=== PATIENT | female | born 1965 | race Caucasian/White ===

== ENCOUNTER 2020-04-18 04:55 | Observation (INO) | payer MEDICARE, OTHER ==
[2020-04-18] MEDS ORDERED: ASPIRIN 81 MG PO STA (05:25)
--- NOTE | 2020-04-18 05:35 | ED ---
Dizziness HPI - General Chief Complaint: Dizziness Stated Complaint: Nausea, chest pain Time Seen by Provider: 04/18/20 04:58 Source: patient, EMS Mode of arrival: EMS Limitations: no limitations - History of Present Illness Initial Comments: This patient is a 54-year-old woman who presents with a constellation of symptoms that had come on tonight approximately one hour ago. The patient was feeling lightheaded and sweaty. The patient also states she had similar symptoms the previous night approximately 2:30. She at that time she was having some substernal chest pressure. She was feeling short of breath, had a little bit of nausea and was feeling very hot. Complaint: lightheadedness -: hour(s) Timing: awoke with symptoms Description: lightheadedness History of Same: Yes Severity: moderate Improves With: nothing Worsens With: nothing Associated Symptoms: chest pain, diaphoresis, shortness of breath - Related Data Home Medications Medication Instructions Recorded Confirmed HYDROcodone/APAP 10-325MG [[place] 1 tab PO Q4HR PRN 04/18/20 04/18/20 10-325] Unknown Depresson Med 1 tab PO DAILY 04/18/20 04/18/20 Allergies Allergy/AdvReac Type Severity Reaction Status Date / Time Penicillins AdvReac Rash/Hives Verified 04/18/20 07:09 Review of Systems ROS Statement: Those systems with pertinent positive or pertinent negative responses have been documented in the HPI. ROS Other: All systems not noted in ROS Statement are negative. Constitutional: Denies: fever, chills Respiratory: Reports: as per HPI, dyspnea. Denies: cough, wheezes, hemoptysis Cardiovascular: Reports: as per HPI, chest pain, syncope (Near syncope). Denies: palpitations, edema Gastrointestinal: Reports: nausea. Denies: abdominal pain, vomiting, diarrhea Genitourinary: Denies: dysuria, hematuria Musculoskeletal: Denies: back pain Skin: Denies: rash Neurological: Denies: headache, weakness, numbness Past Medical History Past Medical History: No Reported History History of Any Multi-Drug Resistant Organisms: None Reported Past Surgical History: Appendectomy, Hernia Repair, Orthopedic Surgery Additional Past Surgical History / Comment(s): Gallbladder removed 2019. Past Psychological History: Depression Smoking Status: Former smoker Past Alcohol Use History: None Reported Past Drug Use History: None Reported General Exam Limitations: no limitations General appearance: alert, in no apparent distress Head exam: Present: atraumatic, normocephalic Eye exam: Present: normal appearance. Absent: scleral icterus, conjunctival injection ENT exam: Present: normal oropharynx Neck exam: Present: normal inspection Respiratory exam: Present: normal lung sounds bilaterally. Absent: respiratory distress, wheezes, rales, rhonchi, stridor Cardiovascular Exam: Present: regular rate, normal rhythm, normal heart sounds. Absent: systolic murmur, diastolic murmur, rubs, gallop GI/Abdominal exam: Present: soft. Absent: distended, tenderness, guarding, rebound, rigid Extremities exam: Present: normal inspection, normal capillary refill. Absent: pedal edema, calf tenderness Back exam: Present: normal inspection. Absent: CVA tenderness (R), CVA tenderness (L) Neurological exam: Present: alert Skin exam: Present: warm, dry, intact, normal color. Absent: rash Course Vital Signs 04/18/20 04/18/20 04:57 07:33 Temperature 98.8 F 99 F Pulse Rate 97 82 Respiratory 16 18 Rate Blood Pressure 135/81 140/87 O2 Sat by Pulse 99 100 Oximetry EKG Findings - EKG Results: EKG: interpreted by ERMD, sinus rhythm (Rate 78 bpm), normal axis, normal ST/T - Blocks, [place], Hypertrophy, ST Abn: AV and intraventricular conduction: right bundle branch block (fixed/intermittent, complete/incomplete) (Incomplete) Medical Decision Making - Medical Decision Making This patient is a 54-year-old woman who presents to be evaluated for episodes of feeling lightheaded or dizzy on the past 2 nights. In addition there was some chest pain that accompanied the previous night's episode. Patient's initial workup here is negative but given the 2 episodes on [id number] nights will admit for serial cardiac enzymes, telemetry monitoring and cardiology consultation. Patient is symptom-free at time of admission - Lab Data Result diagrams: 04/18/20 05:29 04/18/20 05:29 Lab Results 04/18/20 04/18/20 04/18/20 Range/Units 05:29 05:29 05:29 WBC 5.5 (3.8-10.6) k/uL RBC 3.99 (3.80-5.40) m/uL Hgb 13.2 (11.4-16.0) gm/dL Hct 38.6 (34.0-46.0) % MCV 96.8 (80.0-100.0) fL MCH 33.1 (25.0-35.0) pg MCHC 34.2 (31.0-37.0) g/dL RDW 12.7 (11.5-15.5) % Plt Count 310 (150-450) k/uL MPV 7.0 Neutrophils % 63 % Lymphocytes % 29 % Monocytes % 5 % Eosinophils % 1 % Basophils % 1 % Neutrophils # 3.5 (1.3-7.7) k/uL Lymphocytes # 1.6 (1.0-4.8) k/uL Monocytes # 0.3 (0-1.0) k/uL Eosinophils # 0.1 (0-0.7) k/uL Basophils # 0.0 (0-0.2) k/uL PT 10.3 (9.0-12.0) sec INR 1.0 (<1.2) APTT 25.9 (22.0-30.0) sec D-Dimer 0.45 (<0.60) mg/L FEU Sodium 137 (137-145) mmol/L Potassium 4.2 (3.5-5.1) mmol/L Chloride 104 (98-107) mmol/L Carbon Dioxide 25 (22-30) mmol/L Anion Gap 8 mmol/L BUN 23 H (7-17) mg/dL Creatinine 0.64 (0.52-1.04) mg/dL Est GFR (CKD-EPI)AfAm >90 (>60 ml/min/1.73 sqM) Est GFR (CKD-EPI)NonAf >90 (>60 ml/min/1.73 sqM) Glucose 102 H (74-99) mg/dL Calcium 9.3 (8.4-10.2) mg/dL Magnesium 2.2 (1.6-2.3) mg/dL Total Bilirubin 0.5 (0.2-1.3) mg/dL AST 25 (14-36) U/L ALT 37 H (4-34) U/L Alkaline Phosphatase 103 (38-126) U/L Troponin I (0.000-0.034) ng/mL Total Protein 6.6 (6.3-8.2) g/dL Albumin 4.0 (3.5-5.0) g/dL Amylase 81 (30-110) U/L Lipase 184 (23-300) U/L 04/18/20 Range/Units 05:29 WBC (3.8-10.6) k/uL RBC (3.80-5.40) m/uL Hgb (11.4-16.0) gm/dL Hct (34.0-46.0) % MCV (80.0-100.0) fL MCH (25.0-35.0) pg MCHC (31.0-37.0) g/dL RDW (11.5-15.5) % Plt Count (150-450) k/uL MPV Neutrophils % % Lymphocytes % % Monocytes % % Eosinophils % % Basophils % % Neutrophils # (1.3-7.7) k/uL Lymphocytes # (1.0-4.8) k/uL Monocytes # (0-1.0) k/uL Eosinophils # (0-0.7) k/uL Basophils # (0-0.2) k/uL PT (9.0-12.0) sec INR (<1.2) APTT (22.0-30.0) sec D-Dimer (<0.60) mg/L FEU Sodium (137-145) mmol/L Potassium (3.5-5.1) mmol/L Chloride (98-107) mmol/L Carbon Dioxide (22-30) mmol/L Anion Gap mmol/L BUN (7-17) mg/dL Creatinine (0.52-1.04) mg/dL Est GFR (CKD-EPI)AfAm (>60 ml/min/1.73 sqM) Est GFR (CKD-EPI)NonAf (>60 ml/min/1.73 sqM) Glucose (74-99) mg/dL Calcium (8.4-10.2) mg/dL Magnesium (1.6-2.3) mg/dL Total Bilirubin (0.2-1.3) mg/dL AST (14-36) U/L ALT (4-34) U/L Alkaline Phosphatase (38-126) U/L Troponin I <0.012 (0.000-0.034) ng/mL Total Protein (6.3-8.2) g/dL Albumin (3.5-5.0) g/dL Amylase (30-110) U/L Lipase (23-300) U/L Disposition Clinical Impression: Chest pain Disposition: ADMITTED IP TO THIS HOSP Condition: Fair
--- NOTE | 2020-04-18 06:02 | XR ---
EXAM: XR Chest, 2 Views CLINICAL HISTORY: ITS.REASON XR Reason: Chest Pain TECHNIQUE: Frontal and lateral views of the chest. COMPARISON: none available FINDINGS: Lungs: Unremarkable. No consolidation. Pleural space: Unremarkable. No pneumothorax. Heart: Unremarkable. No cardiomegaly. Mediastinum: Unremarkable. Bones/joints: Unremarkable. IMPRESSION: No acute pulmonary process.
[2020-04-18 06:08] LABS: Basophils % (A) 1 %; Eosinophils # (A) 0.1 k/uL (0-0.7); Eosinophils % (A) 1 %; HCT 38.6 % (34.0-46.0); HGB 13.2 gm/dL (11.4-16.0); Lymphocytes # (A) 1.6 k/uL (1.0-4.8); Lymphocytes % (A) 29 %; MCH 33.1 pg (25.0-35.0); MCHC 34.2 g/dL (31.0-37.0); MCV 96.8 fL (80.0-100.0); Monocytes # (A) 0.3 k/uL (0-1.0); Monocytes % (A) 5 %; Neutrophils # (A) 3.5 k/uL (1.3-7.7); Neutrophils % (A) 63 %; Platelet Count 310 k/uL (150-450); RBC 3.99 m/uL (3.80-5.40); RDW 12.7 % (11.5-15.5); WBC 5.5 k/uL (3.8-10.6)
[2020-04-18 06:26] LABS: D-Dimer 0.45 mg/L FEU (<0.60); Partial Thromboplastin Time 25.9 sec (22.0-30.0); Prothrombin Time 10.3 sec (9.0-12.0)
[2020-04-18 06:29] LABS: ALT 37 U/L (4-34); AST 25 U/L (14-36); African American GFR (CKD) >90 (>60 ml/min/1.73 sqM); Alkaline Phosphatase 103 U/L (38-126); Amylase 81 U/L (30-110); Anion Gap 8 mmol/L; Blood Urea Nitrogen 23 mg/dL (7-17); Calcium 9.3 mg/dL (8.4-10.2); Carbon Dioxide 25 mmol/L (22-30); Chloride 104 mmol/L (98-107); Glucose 102 mg/dL (74-99); Lipase 184 U/L (23-300); Magnesium 2.2 mg/dL (1.6-2.3); Non-African American GFR(CKD) >90 (>60 ml/min/1.73 sqM); Potassium 4.2 mmol/L (3.5-5.1); Sodium 137 mmol/L (137-145); Total Bilirubin 0.5 mg/dL (0.2-1.3); Total Protein 6.6 g/dL (6.3-8.2)
[2020-04-18] MEDS ORDERED: NITROGLYCERIN SL TABS 0.4 MG TAB SUBLINGUAL PRN (07:07)
[2020-04-18] MEDS ORDERED: SODIUM CHLORIDE 0.9% 1,000 ML IV SCH (07:15)
[2020-04-18] MEDS ORDERED: DOBUTamine DRIP for NUC MED 500 MG in DEXTROSE/WATER 1 250ML.BAG IV PRN ×2 (09:00→09:30)
--- NOTE | 2020-04-18 09:17 | CONS ---
CONSULTATION Mrs. Rainey is a 54-year-old female with no prior documented history of coronary artery disease who presented with symptoms of diaphoresis, nausea, and an episode of chest discomfort as well as syncope. She had an episode yesterday in bed when she felt some chest discomfort, then felt sweaty, nauseated and felt that she had a brief syncopal episode. When she came to, she had no loss of bladder control. The episode was very brief. She did not have any palpitation. Today she felt nauseated and sweaty and that is why she came into the emergency room. She did not have any syncope or significant chest pain. The patient has no prior cardiac history. She is not very active physically because of her back discomfort. She has no history of prior syncope. No PND or orthopnea. No peripheral edema. Her coronary risk factors are negative for hypertension or diabetes. She is a nonsmoker. MEDICATIONS: Her medication includes Celexa and [place] on a p.r.n. basis. REVIEW OF SYSTEMS: RESPIRATORY SYSTEM: She has no documented history of asthma, emphysema or bronchitis. GI SYSTEM: No recent GI bleeding. No peptic ulcer disease. SYSTEM: No dysuria or hematuria. NERVOUS SYSTEM: No stroke or seizure. PHYSICAL EXAMINATION: She is a 54-year-old female, alert, oriented, in no apparent distress. Blood pressure 124/70 with the heart rate in the 70s. HEAD: Normocephalic. EYES: Sclerae anicteric. NECK: Good upstroke. No bruit. No jugular venous distention. LUNGS: Clear to auscultation. HEART: Regular rate and rhythm. S1, S2. No S3. No S4. No murmur or rub. ABDOMEN: Soft, nontender. Positive bowel sounds. No organomegaly. EXTREMITIES: No edema. Intact distal pulses. LAB DATA: Lab data revealed troponin less than 0.012. BUN and creatinine 23 and 0.64. Potassium 4.2. Hemoglobin 13.2. EKG revealed a sinus mechanism normal axis with RSR prime. No acute ST-segment changes. Chest x-ray shows no acute infiltrate. IMPRESSION: 1. Chest discomfort of unclear etiology, has atypical features for ischemic heart disease. 2. History of chronic back pain. 3. Questionable syncopal episode, could be related to vasovagal symptoms. RECOMMENDATION: We will check the rest of her enzymes. If they are negative, I will obtained dobutamine stress echocardiogram and transthoracic echocardiogram and depending on the testing, further recommendation will be made. Thank you for this consult. We will follow with you. TIMO / IJN: [id number] /
[2020-04-18] MEDS ORDERED: HYDROcodone/APAP 10-325MG 1 EACH TAB PO PRN (11:25)
[2020-04-18] MEDS ORDERED: CITALOPRAM HYDROBROMIDE 20 MG TAB PO SCH (11:30)
--- NOTE | 2020-04-18 13:32 | ECHOF ---
Referral Reason:cp MEASUREMENTS -------- HEIGHT: 167.6 cm WEIGHT: 69.4 kg BP: 124/73 RVIDd: 3.1 cm (< 3.3) IVSd: 1.1 cm (0.6 - 1.1) LVIDd: 4.0 cm (3.9 - 5.3) LVPWd: 0.9 cm (0.6 - 1.1) IVSs: 1.4 cm LVIDs: 2.3 cm LVPWs: 1.5 cm LA Diam: 3.3 cm (2.7 - 3.8) Ao Diam: 3.0 cm (2.0 - 3.7) AV Cusp: 2.2 cm (1.5 - 2.6) MV EXCURSION: 17.484 mm (> 18.000) MV EF SLOPE: 87 mm/s (70 - 150) EPSS: 0.3 cm MV E Imtiaz: 0.99 m/s MV DecT: 212 ms MV A Imtiaz: 0.84 m/s MV E/A Ratio: 1.17 FINDINGS -------- Sinus rhythm. This was a technically adequate study. The left ventricular size is normal. Left ventricular wall thickness is normal. Overall left vent ricular systolic function is normal with, an EF between 55 - 60 %. The right ventricle is normal in size. The left atrium is normal in size. The right atrial size is normal. Lipomatous Hypertrophy of the atrial septum is present The aortic valve is trileaflet, and appears structurally normal. No aortic stenosis or regurgitation. The mitral valve is normal. There is trace to mild mitral regurgitation. The tricuspid valve appears structurally normal. Trace tricuspid regurgitation present. There is no pulmonic regurgitation present. The aortic root size is normal. Normal inferior vena cava with normal inspiratory collapse consistent with estimated right atrial pre ssure of 5 mmHg. There is no pericardial effusion. CONCLUSIONS -------- 1. Left ventricular wall thickness is normal. 2. Overall left ventricular systolic function is normal with, an EF between 55 - 60 %. 3. The left atrium is normal in size. 4. Lipomatous Hypertrophy of the atrial septum is present 5. The aortic valve is trileaflet, and appears structurally normal. No aortic stenosis or regurgitati on. 6. There is trace to mild mitral regurgitation. 7. Trace tricuspid regurgitation present. 8. There is no pericardial effusion. FOOD PROCESSOR: Amparo Zhang RDCS
[2020-04-18 13:46] VITALS: BP 125/79; PULSE 71; RESP 17; TEMP 97.7
--- NOTE | 2020-04-18 14:51 | ECHOS ---
STRESS ECHOCARDIOGRAM LUMASON: N/A Vial INDICATIONS: Chest pain MEDICATIONS: BASELINE HEART RATE: 75 BASELINE BLOOD PRESSURE: 117/83 MAXIMUM HEART RATE: 145 MAXIMUM BLOOD PRESSURE: 159/78 85% MPHR: 140 100% MPHR: 165 METS: N/A MAXIMUM STAGE REACHED: 3 TOTAL EXERCISE TIME: 7:00 CLINICAL INFORMATION: Baseline rhythm sinus mechanism, rate of 75, normal axis and intervals. Normal electrocardiogram. Baseline blood pressure 117/83 mmHg. Patient received infusion of dobutamine. Peak rate 145 beats per minute which is equal to 88% maximum predicted heart rate. Peak blood pressure 159/78 mmHg. Electrocardiograph monitoring revealed no evidence of diagnostic ischemic ST deviation. Baseline echocardiogram revealed normal wall motion. At peak infusion, there was normal wall motion augmentation with no hypokinesis or dyskinesis. CONCLUSION: 1. Normal electrocardiograph response to dobutamine infusion. 2. Normal stress echocardiogram with no evidence of stress-induced ischemia. MMODL / IJN: [id number] /
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
--- NOTE | 2020-04-18 23:00 | P.DS ---
Providers Date of admission: 04/18/20 07:07 Expected date of discharge: 04/18/20 Attending physician: Felix Kelly Consults: 04/18/20 07:07 Consult Physician Routine Consulting Provider: John Ibarra Consult Reason/Comments: chest pain Do you want consulting provider notified?: Yes [facility] Course: Chief Complaint: Chest pain History of presenting complaint: This is a pleasant 54-year-old patient of Dr. Mckeon. Patient denied before dialysis some central chest pressure picked up to her shoulder. Some shortness of breath. No perspiration. It happened again the following night. Happened at rest. Otherwise patient's fairly active with no prior cardiac history. Decided to come in to get checked out. It felt like a pressure in the lower part of the sternum. Admitted with unstable angina Troponins were negative. 2-D echocardiogram showed preserved LV function. Dobutamine stress echocardiogram was negative for ischemia. Seen by Dr. Lubin from cardiology. Cleared for discharge. Consultation: Dr. Lubin from cardiology Past medical history to include: Depression, arthritic pain Social history: Does not smoke. No alcohol. Physical examination: VITAL SIGNS: 98.8, 97, 16, 1 3581, 99% room air GENERAL: BMI 24.7, laying in bed, comfortable. EYES: Pupils equal. Conjunctiva normal. HEENT: External appearance of nose and ears normal, oral cavity grossly normal. NECK: JVD not raised; masses not palpable. HEART: First and second heart sounds are normal; no edema. LUNGS: Respiratory rate normal; clear to auscultation. ABDOMEN: Soft, nontender, liver spleen not palpable, no masses palpable. PSYCH: Alert and oriented x3; mood and affect normal. NEUROLOGICAL: Cranial nerves grossly intact; no facial asymmetry, power and sensation grossly intact. LYMPHATICS: No lymph nodes palpable in the axilla and neck INVESTIGATIONS, reviewed in the clinical context: White count 5.5 hemoglobin 13.2 platelets 310 potassium 4.2 creatinine 0.64 Troponin I 2 negative Coronavirus [PCR]-not detected EKG tracing personally reviewed by me-normal sinus rhythm with incomplete right bundle-branch block Chest x-ray film personally reviewed by me-lung simpson clear 2-D echocardiogram-EF 55-60%. Lipomatous hypertrophy of the atrial septum. Dobutamine echocardiogram-negative for ischemia Assessment and plan: -Anterior chest wall pain. Could be muscular skeletal. -Depression not otherwise specified. Continue Celexa -Unspecified arthritis. Patient Condition at Discharge: Fair Plan - Discharge Summary New Discharge Prescriptions: No Action HYDROcodone/APAP 10-325MG [[place] 10-325] 1 tab PO Q4HR PRN PRN Reason: Pain Citalopram Hydrobromide [CeleXA] 20 mg PO DAILY Discharge Medication List Citalopram Hydrobromide [CeleXA] 20 mg PO DAILY 04/18/20 [History] HYDROcodone/APAP 10-325MG [[place] 10-325] 1 tab PO Q4HR PRN 04/18/20 [History] Follow up Appointment(s)/Referral(s): Aminata Lubin MD [STAFF PHYSICIAN] - 1 Week (Cardiology office will call with appointment time) Mane Mckeon MD [Primary Care Provider] - 04/24/20 11:00 am Patient Instructions/Handouts: Chest Pain (DC) Activity/Diet/Wound Care/Special Instructions: Aspirin 81 mg daily
[2020-04-19] MEDS ORDERED: ASPIRIN 325 MG TAB PO SCH (09:00)
== END 2020-04-18 16:20 ==
LOC: EC 04:55 → 6NMEDSUR 07:07
PROVIDERS: ADMIT Hospitalist; ATTEND Hospitalist
DX: R07.89 Other chest pain (principal); R42 Dizziness and giddiness; R11.0 Nausea; R06.02 Shortness of breath; R61 Generalized hyperhidrosis; I45.10 Unspecified right bundle-branch block; F32.9 Major depressive disorder, single episode, unspecified; R55 Syncope and collapse; G89.29 Other chronic pain; M54.9 Dorsalgia, unspecified; M19.90 Unspecified osteoarthritis, unspecified site; Z20.828 Contact with and (suspected) exposure to other viral communicable diseases; Z79.891 Long term (current) use of opiate analgesic; Z79.899 Other long term (current) drug therapy; Z88.0 Allergy status to penicillin; Z90.49 Acquired absence of other specified parts of digestive tract; Z87.891 Personal history of nicotine dependence; Z98.890 Other specified postprocedural states; Z80.3 Family history of malignant neoplasm of breast; Z82.49 Family history of ischemic heart disease and other diseases of the circulatory system
CPT/HCPCS: 99285; 36415; 93005; 93306; 93351; 85379; 80053; 82150; 83690; 83735; 84484; 85025; 85610; 85730; 87635; 71046; G0378; J1250

== ENCOUNTER 2020-04-20 04:00 | Observation (INO) | payer MEDICARE, OTHER ==
[2020-04-20] MEDS ORDERED: SODIUM CHLORIDE 0.9% 1,000 ML IV STA (04:07)
[2020-04-20] MEDS ORDERED: LORazepam 2 MG/ML INJ IV STA (04:08)
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
[2020-04-20 04:59] LABS: Basophils # (A) 0.1 k/uL (0-0.2); Basophils % (A) 1 %; Eosinophils # (A) 0.1 k/uL (0-0.7); Eosinophils % (A) 2 %; HCT 40.2 % (34.0-46.0); HGB 13.4 gm/dL (11.4-16.0); Lymphocytes # (A) 1.4 k/uL (1.0-4.8); Lymphocytes % (A) 20 %; MCH 32.2 pg (25.0-35.0); MCHC 33.4 g/dL (31.0-37.0); MCV 96.2 fL (80.0-100.0); Mean Platelet Volume 6.7; Monocytes # (A) 0.4 k/uL (0-1.0); Monocytes % (A) 5 %; Neutrophils # (A) 5.2 k/uL (1.3-7.7); Neutrophils % (A) 72 %; Platelet Count 297 k/uL (150-450); RBC 4.18 m/uL (3.80-5.40); RDW 12.6 % (11.5-15.5); WBC 7.2 k/uL (3.8-10.6)
[2020-04-20 05:09] LABS: ALT 26 U/L (4-34); AST 21 U/L (14-36); African American GFR (CKD) >90 (>60 ml/min/1.73 sqM); Albumin 3.9 g/dL (3.5-5.0); Alkaline Phosphatase 101 U/L (38-126); Anion Gap 6 mmol/L; Blood Urea Nitrogen 19 mg/dL (7-17); Calcium 9.5 mg/dL (8.4-10.2); Carbon Dioxide 28 mmol/L (22-30); Chloride 104 mmol/L (98-107); Creatine Kinase 78 U/L (30-135); Glucose 111 mg/dL (74-99); Magnesium 2.1 mg/dL (1.6-2.3); Non-African American GFR(CKD) >90 (>60 ml/min/1.73 sqM); Phosphorus 3.7 mg/dL (2.5-4.5); Potassium 4.1 mmol/L (3.5-5.1); Sodium 138 mmol/L (137-145); Total Bilirubin 0.5 mg/dL (0.2-1.3); Total Protein 6.6 g/dL (6.3-8.2)
[2020-04-20 05:17] LABS: D-Dimer 0.24 mg/L FEU (<0.60); Partial Thromboplastin Time 25.7 sec (22.0-30.0); Prothrombin Time 10.7 sec (9.0-12.0)
[2020-04-20 05:19] LABS: Creatine Kinase MB 0.3 ng/mL (0.0-2.4); Troponin I <0.012 ng/mL (0.000-0.034)
--- NOTE | 2020-04-20 05:38 | CT ---
EXAM: CT Angiography Chest With Intravenous Contrast CLINICAL HISTORY: syncope TECHNIQUE: Axial computed tomographic angiography images of the chest with intravenous contrast. CTDI is 25.47 mGy and DLP is 729.15 mGy-cm. This CT exam was performed using one or more of the following dose reduction techniques: automated exposure control, adjustment of the mA and/or kV according to patient size, and/or use of iterative reconstruction technique. MIP reconstructed images were created and reviewed. Coronal and sagittal reformatted images were created and reviewed. COMPARISON: No relevant prior studies available. FINDINGS: Pulmonary arteries: Unremarkable. No pulmonary embolism. Aorta: No acute findings. No thoracic aortic aneurysm. Lungs: Unremarkable. No mass. No consolidation. Pleural space: Unremarkable. No significant effusion. No pneumothorax. Heart: Unremarkable. Bones/joints: Mild degenerative changes. Mild compression defect of superior endplate of T12, L2 and L1, likely chronic. No dislocation. Soft tissues: 3 x 7 x 2 cm layer of fluid collection in the fibroglandular tissues of right breast, extending to lateral aspect of the areola best seen on series 601 images 82-10. Lymph nodes: Unremarkable. No enlarged lymph nodes. Gallbladder and bile ducts: Mild intra-and extrahepatic biliary duct dilatation is likely related patient's age and cholecystectomy. IMPRESSION: 1. No pulmonary embolism. Normal thoracic aorta. 2. 3 x 7 x 2 cm layer of subcutaneous fluid collection in the fibroglandular tissues of right breast, extending to lateral aspect of the areola suggests seroma versus abscess. Please correlate with history of trauma versus surgery in this region.
--- NOTE | 2020-04-20 05:38 | CT ---
EXAM: CT Head Without Intravenous Contrast CLINICAL HISTORY: syncope TECHNIQUE: Axial computed tomography images of the head/brain without intravenous contrast. CTDI is 25.47 mGy and DLP is 729.15 mGy-cm. This CT exam was performed using one or more of the following dose reduction techniques: automated exposure control, adjustment of the mA and/or kV according to patient size, and/or use of iterative reconstruction technique. Coronal and sagittal reformatted images were created and reviewed. COMPARISON: No relevant prior studies available. FINDINGS: Brain: Unremarkable. No hemorrhage. No significant white matter disease. No edema. Ventricles: Unremarkable. No ventriculomegaly. Bones/joints: Unremarkable. No acute fracture. Soft tissues: Unremarkable. Sinuses: Unremarkable as visualized. No acute sinusitis. Mastoid air cells: Unremarkable as visualized. No mastoid effusion. IMPRESSION: Normal head/brain CT.
[2020-04-20] MEDS ORDERED: ASPIRIN 81 MG PO STA (06:02)
[2020-04-20] MEDS ORDERED: NITROGLYCERIN SL TABS 0.4 MG TAB SUBLINGUAL PRN (06:02)
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
[2020-04-20] MEDS ORDERED: HYDROcodone/APAP 10-325MG 1 EACH TAB PO PRN (10:35)
[2020-04-20] MEDS: CITALOPRAM HYDROBROMIDE 20 MG TAB PO SCH (14:25)
[2020-04-20] MEDS: ENOXAPARIN 40 MG/0.4 ML SYRINGE SQ SCH (14:25)
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
[2020-04-21] MEDS ORDERED: LORazepam 2 MG/ML INJ IV PRN (08:25)
[2020-04-21] MEDS: ASPIRIN 325 MG TAB PO SCH (08:42)
[2020-04-21] MEDS: ENOXAPARIN 40 MG/0.4 ML SYRINGE SQ SCH (08:42)
[2020-04-21] MEDS: CITALOPRAM HYDROBROMIDE 20 MG TAB PO SCH (08:42)
--- NOTE | 2020-04-21 11:10 | US ---
EXAMINATION TYPE: US carotid duplex BILAT DATE OF EXAM: 04/21/2020 COMPARISON: NONE CLINICAL HISTORY: Recurrent syncope. EXAM MEASUREMENTS: RIGHT: Peak Systolic Velocity (PSV) cm/sec ----- Right CCA: 92.4 ----- Right ICA: 111.2 ----- Right ECA: 151.3 ICA/CCA ratio: 1.2 RIGHT: End Diastole cm/sec ----- Right CCA: 21.2 ----- Right ICA: 42.3 ----- Right ECA: 24.6 LEFT: Peak Systolic Velocity (PSV) cm/sec ----- Left CCA: 88.7 ----- Left ICA: 86.0 ----- Left ECA: 101.3 ICA/CCA ratio: 1.0 LEFT: End Diastole cm/sec ----- Left CCA: 19.6 ----- Left ICA: 32.7 ----- Left ECA: 18.3 VERTEBRALS (direction of flow): Right Vertebral: Antegrade Left Vertebral: Antegrade Rhythm: Normal Bilateral intimal thickening, elevated velocities: right prox ECA and left prox CCA, no significant s tenosis IMPRESSION: 1. Bilateral intimal thickening with focal areas of plaque but no significant hemodynamic stenosis. Criteria for Assigning % of Stenosis / Diameter reduction (Estimation based on the indirect measurements of the internal carotid artery velocities (ICA PSV). 1. Normal (no stenosis)=ICA PSV < 125 cm/s: ratio < 2.0: ICA EDV<40 cm/s. 2. Less than 50% stenosis=ICA PSV < 125 cm/s: ratio < 2.0: ICA EDV<40 cm/s. 3. 50 to 69% stenosis=ICA PSV of 125 to 230 cm/s: ration 2.0 ? 4.0: ICA EDV 40-100 cm/s. 4. Greater than 70% stenosis to near occlusion= ICA PSV > 230 cm/s: ratio > 4.0: ICA EDV > 100 cm/s. 5. Near occlusion= ICA PSV velocities may be low or undetectable: variable ratio and ICA EDV. 6. Total occlusion=unable to detect flow.
--- NOTE | 2020-04-21 11:28 | P.PN ---
Subjective HISTORY OF PRESENTING ILLNESS This is a pleasant 54-year-old female with no significant past medical history. She is seen and examined resting comfortably in no acute distress. She states she is again starting to feel full sensation in her head. She also has numbness and tingling bilateral lower extremities. She denies chest pain, s hortness of breath or palpitations. Telemetry tracings have been unremarkable for an acute arrhythmia or any significant pauses. Blood pressure 113/71 heart rate 71 afebrile maintaining oxygen saturation on room air. PHYSICAL EXAMINATION CONSTITUTIONAL: No apparent distress. HEENT: Head is normocephalic. Pupils are equal, round. Sclerae anicteric. Mucous membranes of the mouth are moist. No JVD. No carotid bruit. CHEST EXAMINATION: Lungs are clear to auscultation. No chest wall tenderness is noted on palpation or with deep breathing. HEART EXAMINATION: Regular rate and rhythm. S1, S2 heard. No murmurs, gallops or rub. EXTREMITIES: 2+ peripheral pulses, no lower extremity edema and no calf tenderness. ASSESSMENT Near syncope Former nicotine dependence PLAN Ongoing medical management. Neurology evaluation pending. We will follow along as needed, please follow-up in the office with Dr. Lubin upon discharge. Further outpatient heart monitoring will be set up at that time if needed. Nurse Practitioner note has been reviewed, I agree with a documented findings and plan of care. Patient was seen and examined. Objective - Vital Signs Vital signs: Vital Signs Temp 97.9 F 04/21/20 02:00 Pulse 71 04/21/20 02:00 Resp 16 04/21/20 02:00 BP 113/71 04/21/20 02:00 Pulse Ox 98 04/21/20 02:00 Intake & Output 04/20/20 04/21/20 04/21/20 18:59 06:59 18:59 Intake Total 618 Balance 618 Weight 69.4 kg Intake: Oral 618 Other: Voiding Method Toilet # Voids 1 - Labs CBC & Chem 7: 04/20/20 04:48 04/20/20 04:48
--- NOTE | 2020-04-21 12:12 | MR ---
EXAMINATION TYPE: MR angio head wo con DATE OF EXAM: 04/21/2020 COMPARISON: None HISTORY: Passed out CONTRAST: None TECHNIQUE: Multiplanar multiecho imaging on a 3.0 Felicity magnet is performed through the [place]. 3-D [id number] imaging is performed. Source images are reviewed on the computer in the axi al plane. Reconstructed images rotating on the computer are reviewed. FINDINGS: The internal carotid arteries bifurcate normally into A1 and M1 segments. The A2 segments are normal. Middle cerebral artery branches are normal. Anterior communicating artery is patent. The right posterior communicating artery is patent. The left posterior communicating artery is patent. Vertebrobasilar arteries within the bqwcn-ak-[id number] are normal. Left vertebral artery appears dominant . Posterior cerebral vasculature is normal. No suspicious aneurysm or aneurysmal dilatation is evide nt. No obstructions are identified. No significant flow-limiting stenosis is evident. IMPRESSIONS: 1. NORMAL MRA MATCH-E-BE-NASH-SHE-WISH BAND OF G[place].
--- NOTE | 2020-04-21 12:15 | MR ---
EXAMINATION TYPE: MR brain wo/w con DATE OF EXAM: 04/21/2020 COMPARISON: None HISTORY: Passed out CONTRAST: Performed utilizing 7 mL intravenous Gadavist gadolinium contrast. TECHNIQUE: Multiplanar, multiecho imaging on a 3.0 Felicity magnet is performed through the brain. Stud y is performed within 24 hours of arrival to the hospital. The craniovertebral junction is normal. The pituitary is normal. Diffusion-weighted imaging is performed. No abnormal hyperintensity is present to suggest an acute i ntracranial infarct or acute ischemic change. There are scattered punctate areas of hyperintensity on T2 and Inversion Recovery weighted sequences which are non-specific but can be related to microvascular ischemic changes. Ventricles and sulci are appropriate for the patient age. No abnormal enhancement is evident. IMPRESSIONS: 1. Normal pre and postcontrast MRI brain
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
[2020-04-22] MEDS ORDERED: MELATONIN 5 MG TABLET PO PRN (02:31)
[2020-04-22 05:24] LABS: Folate, Serum 11.8 ng/mL
[2020-04-22] MEDS: ENOXAPARIN 40 MG/0.4 ML SYRINGE SQ SCH (08:47)
[2020-04-22] MEDS: ASPIRIN 325 MG TAB PO SCH (08:47)
[2020-04-22] MEDS: CITALOPRAM HYDROBROMIDE 20 MG TAB PO SCH (08:47)
[2020-04-22 09:31] LABS: Chol/HDL Ratio 3.85; Cholesterol 158 mg/dL (0-200); Triglycerides <50.0 mg/dL (0.0-149.0)
[2020-04-22 15:16] VITALS: BP 119/80; PULSE 95; RESP 20; TEMP 98.7
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
--- NOTE | 2020-04-24 15:10 | EEG ---
ELECTROENCEPHALOGRAM REPORT DATE OF SERVICE: 04/22/2020. CLINICAL HISTORY: This is a 54-year-old female who presented to the hospital for reported near syncopal episode. It is reported that the patient had lightheadedness, feeling flushed and dizzy. This video EEG is obtained to evaluate for seizure and epileptiform activity. EEG TYPE: A routine 21 channel EEG is performed with video using the 10/20 electrode placement system. DESCRIPTION: Wakefulness is only obtained. During wakefulness, there is a posterior dominant rhythm of low to moderate voltage, reactive, well modulated of 10-11 hertz. There is no physiological stage II sleep. There is no focal slowing seen. Interictal and ictal: None. ACTIVATION PROCEDURE: Photic stimulation did not evoke a posterior driving response. Hyperventilation is not performed. CLINICAL INTERPRETATION: This is a normal routine EEG. There are no focal slowing, epileptiform discharges or seizure during the study. Clinical correlation is recommended. TIMO / MARCELA: [id number] / ENEDINA
== END 2020-04-22 15:22 ==
LOC: EC 04:00 → 6NMEDSUR 06:02
PROVIDERS: ADMIT Hospitalist; ATTEND Hospitalist
DX: R55 Syncope and collapse (principal); F41.9 Anxiety disorder, unspecified; R07.9 Chest pain, unspecified; G89.29 Other chronic pain; M54.5 Low back pain; M54.2 Cervicalgia; R20.0 Anesthesia of skin; R20.2 Paresthesia of skin; R61 Generalized hyperhidrosis; M54.32 Sciatica, left side; M54.31 Sciatica, right side; R00.2 Palpitations; R06.02 Shortness of breath; F32.9 Major depressive disorder, single episode, unspecified; Z20.822 Contact with and (suspected) exposure to COVID-19; Z90.49 Acquired absence of other specified parts of digestive tract; Z87.828 Personal history of other (healed) physical injury and trauma; Z87.891 Personal history of nicotine dependence; Z80.3 Family history of malignant neoplasm of breast; Z82.49 Family history of ischemic heart disease and other diseases of the circulatory system; Z79.82 Long term (current) use of aspirin; Z79.899 Other long term (current) drug therapy; Z79.891 Long term (current) use of opiate analgesic; Z88.0 Allergy status to penicillin
CPT/HCPCS: 96361 ×2; 96372 ×3; 93005 ×2; 96374; 99285; 36415; 95816; 85379; 83880; 80061; 80053; 82607; 82550; 82553; 82746; 83605; 83735; 84100; 84443; 84484; 85025; 85610; 85730; 87635; 93880; 70450; 71275; 70544; 70553; G0378 ×3; J2060; J1650 ×3; A9585; Q9967

== ENCOUNTER 2020-06-10 00:22 | Emergency (ER) | payer MEDICARE, OTHER ==
[2020-06-10 00:59] LABS: Basophils % (A) 0 %; Eosinophils # (A) 0.2 k/uL (0-0.7); Eosinophils % (A) 2 %; HCT 41.1 % (34.0-46.0); HGB 14.1 gm/dL (11.4-16.0); Lymphocytes # (A) 2.1 k/uL (1.0-4.8); Lymphocytes % (A) 25 %; MCH 33.7 pg (25.0-35.0); MCHC 34.3 g/dL (31.0-37.0); MCV 98.4 fL (80.0-100.0); Mean Platelet Volume 6.7; Monocytes # (A) 0.6 k/uL (0-1.0); Monocytes % (A) 7 %; Neutrophils # (A) 5.2 k/uL (1.3-7.7); Neutrophils % (A) 65 %; Platelet Count 309 k/uL (150-450); RBC 4.18 m/uL (3.80-5.40); RDW 11.8 % (11.5-15.5); WBC 8.1 k/uL (3.8-10.6)
[2020-06-10 01:07] LABS: INR 0.9 (<1.2); Partial Thromboplastin Time 25.2 sec (22.0-30.0); Prothrombin Time 10.2 sec (9.0-12.0)
[2020-06-10 01:16] LABS: ALT 54 U/L (4-34); AST 47 U/L (14-36); African American GFR (CKD) >90 (>60 ml/min/1.73 sqM); Albumin 4.3 g/dL (3.5-5.0); Alkaline Phosphatase 118 U/L (38-126); Anion Gap 7 mmol/L; Blood Urea Nitrogen 28 mg/dL (7-17); Calcium 9.7 mg/dL (8.4-10.2); Carbon Dioxide 28 mmol/L (22-30); Chloride 102 mmol/L (98-107); Glucose 119 mg/dL (74-99); Non-African American GFR(CKD) >90 (>60 ml/min/1.73 sqM); Potassium 4.8 mmol/L (3.5-5.1); Sodium 137 mmol/L (137-145); Total Bilirubin 0.2 mg/dL (0.2-1.3); Total Protein 6.9 g/dL (6.3-8.2)
--- NOTE | 2020-06-10 01:22 | XR ---
EXAM: XR Chest, 2 Views CLINICAL HISTORY: ITS.REASON XR Reason: Chest Pain TECHNIQUE: Frontal and lateral views of the chest. COMPARISON: 04/18/2020 FINDINGS: Lungs: Unremarkable. No consolidation. Pleural space: Unremarkable. No pneumothorax. Heart: Unremarkable. No cardiomegaly. Mediastinum: Unremarkable. Bones/joints: Unremarkable. IMPRESSION: No acute pulmonary process.
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
[2020-06-10 05:27] VITALS: BP 123/86; PULSE 79; RESP 14; TEMP 98.7
== END 2020-06-10 05:26 | disposition home or self-care (01) ==
LOC: EC 00:22
DX: F41.0 Panic disorder [episodic paroxysmal anxiety] (principal); R07.89 Other chest pain; R06.00 Dyspnea, unspecified; F32.9 Major depressive disorder, single episode, unspecified; Z87.891 Personal history of nicotine dependence
CPT/HCPCS: 36415; 71046; 80053; 83735; 83880; 84484; 85025; 85610; 85730; 93005; 99285